=== PATIENT | female | born 1990 | race Caucasian/White ===

== ENCOUNTER 2016-08-15 13:19 | Emergency (ER) | payer SELFPAY | END 2016-08-15 14:22 | disposition home or self-care (01) | LOC: FER 13:19 | DX: K04.7 Periapical abscess without sinus (principal); Z98.818 Other dental procedure status | CPT/HCPCS: 99282 ==

== ENCOUNTER 2016-08-16 05:21 | Emergency (ER) | payer SELFPAY | END 2016-08-16 06:05 | disposition home or self-care (01) | LOC: FER 05:21 | DX: K04.7 Periapical abscess without sinus (principal); F17.200 Nicotine dependence, unspecified, uncomplicated ==